=== PATIENT | female | born 1970 | race Caucasian/White ===

== ENCOUNTER 2016-11-02 19:10 | Emergency (ER) | payer BC ==
[2016-11-02 21:08] VITALS: BP 118/73
[2016-11-02] MEDS ORDERED: Hydrocortisone 1% CREAM* 30 GM TUBE TOPICAL ONE (21:25)
--- NOTE | 2016-11-02 21:30 | UC ---
Skin Complaint HPI - HPI Summary HPI Summary: rash under left armpit for months. Comes and goes. No rash elsewhere. Slightly burning and itchy. She uses some sort of herbal deodorant. Has switched types since rash started, didn't help. - History of Current Complaint Chief Complaint: UCSkin Time Seen by Provider: 11/02/16 21:11 Stated Complaint: RASH UNDER ARMS Hx Obtained From: Patient Hx Last Menstrual Period: had an ablation ?: No Onset/Duration: Gradual Onset, Lasting Weeks Timing: Constant Onset Severity: Mild Current Severity: Moderate Location: Other - left axilla Character: Pruritus, Redness, Painful Aggravating: Touch Alleviating: Other - will go away if she stops using deodorant and puts some sort of herbal cream on it. But then it gradually returns. Associated Signs & Symptoms: Positive: Rash Related History: Possible Reaction to: Environmental Exposure - herbal deodorant - Allergy/Home Medications Allergies/Adverse Reactions: Allergies Allergy/AdvReac Type Severity Reaction Status Date / Time Penicillin G Allergy Hives Verified 11/02/16 21:08 Home Medications: Home Medications ValACYclovir (*) [Valtrex 500 mg (*)] 500 mg PO BID PRN 11/02/16 [History Confirmed 11/02/16] Review of Systems Constitutional: Negative Skin: Rash Eyes: Negative ENT: Negative Respiratory: Negative Cardiovascular: Negative Gastrointestinal: Negative Genitourinary: Negative Motor: Negative Neurovascular: Negative Musculoskeletal: Negative Neurological: Negative Psychological: Negative All Other Systems Reviewed And Are Negative: Yes PMH/Surg Hx/FS Hx/Imm Hx Previously Healthy: Yes - Surgical History Surgical History: Yes Surgery Procedure, Year, and Place: c section x2. neck fusion. 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 Lives: With Family Alcohol Use: Occasionally Substance Use Type: None Smoking Status (MU): Never Smoked Tobacco - Immunization History Most Recent Influenza Vaccination: none Physical Exam Triage Information Reviewed: Yes Appearance: Well-Appearing, No Pain Distress, Well-Nourished Vital Signs: Initial Vital Signs Temp 97.7 F 11/02/16 20:58 Pulse 73 11/02/16 20:58 Resp 16 11/02/16 20:58 BP 118/73 11/02/16 20:58 Pulse Ox 98 11/02/16 20:58 Vital Signs Reviewed: Yes Eye Exam: Normal Eyes: Positive: Conjunctiva Clear Neck exam: Normal Neck: Positive: Supple, Nontender Respiratory Exam: Normal Respiratory: Positive: Lungs clear Cardiovascular Exam: Normal Musculoskeletal Exam: Normal Neurological Exam: Normal Psychological Exam: Normal Skin Exam: Other - ovoid reddened area in left axilla. It is just in the axilla , seems to correlate with where one would put deodorant. No blisters or pustules. Slightly scaly. Mildly tender Course/Dx - Course Course Of Treatment: contact dermatitis vs. fungal infection - Differential Diagnoses - Skin Complaint Differential Diagnoses: Cellulitis, Contact Dermatitis, Tinea, Urticaria - Diagnoses Provider Diagnoses: contact dermatitis Discharge - Discharge Plan Condition: Stable Disposition: HOME Prescriptions: Clotrimazole/Betamethasone* [Lotrisone Cream*] 1 applic TOPICAL BID #1 tube Patient Education Materials: Contact Dermatitis (ED) Referrals: Kenyatta Powell NP [Primary Care Provider] -
== END 2016-11-02 21:38 | disposition home or self-care (01) ==
LOC: UCCORT 19:10
DX: L25.9 Unspecified contact dermatitis, unspecified cause (principal); Z88.0 Allergy status to penicillin
CPT/HCPCS: 99212; A9270-GY; G0463

== ENCOUNTER 2017-01-23 19:49 | Emergency (ER) | payer BC ==
[2017-01-23 20:01] VITALS: BP 127/76
--- NOTE | 2017-01-23 20:21 | UC ---
Skin Complaint HPI - HPI Summary HPI Summary: 47 female presents with tick bite that she noticed today around 12pm today . She was outside in the [facility] when she felt something on her back irritating her and realized it was a tick. Patient was unable to remove tick by herself. She admits to redness surrounding bite but denies bullseye rash. Tick has been attached for the past ~6 hours. Denies any other complaints at this time. Denies swelling, pain and pruritis. - History of Current Complaint Chief Complaint: UCSkin Time Seen by Provider: 01/23/17 19:55 Stated Complaint: TICK Hx Obtained From: Patient Hx Last Menstrual Period: ablation ?: No Onset/Duration: Sudden Onset Skin Exposure Onset/Duration: Hours Ago Current Severity: Mild Pain Intensity: 3 Pain Scale Used: 0-10 Numeric Location: Other - left side/flank Character: Redness - Allergy/Home Medications Allergies/Adverse Reactions: Allergies Allergy/AdvReac Type Severity Reaction Status Date / Time Penicillin G Allergy Hives Verified 01/23/17 20:00 Review of Systems Constitutional: Negative Skin: Other - tick bite Respiratory: Negative Cardiovascular: Negative Gastrointestinal: Negative Motor: Negative Neurovascular: Negative Musculoskeletal: Negative Neurological: Negative All Other Systems Reviewed And Are Negative: Yes PMH/Surg Hx/FS Hx/Imm Hx Endocrine History Of: Denies: Diabetes Cardiovascular History Of: Denies: Hypertension Respiratory History Of: Denies: Asthma - Surgical History Surgical History: Yes Surgery Procedure, Year, and Place: c section x2. neck fusion. lamenectomy. uterine ablation - Family History Known Family History: Negative: Cardiac Disease - Social History Alcohol Use: Occasionally Substance Use Type: None Smoking Status (MU): Never Smoked Tobacco - Immunization History Most Recent Influenza Vaccination: none Physical Exam Triage Information Reviewed: Yes Appearance: Well-Appearing - appears anxious, No Pain Distress, Well-Nourished Vital Signs: Initial Vital Signs Temp 96.3 F 01/23/17 19:57 Pulse 71 01/23/17 19:57 Resp 16 01/23/17 19:57 BP 127/76 01/23/17 19:57 Pulse Ox 100 01/23/17 19:57 Vital Signs Reviewed: Yes Eyes: Positive: Conjunctiva Clear ENT: Positive: Normal ENT inspection, Hearing grossly normal Neck: Positive: Supple, Nontender Respiratory: Positive: Chest non-tender, Lungs clear, Normal breath sounds Cardiovascular: Positive: RRR, No Murmur, Pulses Normal Abdomen Description: Positive: Nontender Bowel Sounds: Positive: Present Musculoskeletal: Positive: Strength Intact, ROM Intact, No Edema Neurological: Positive: Alert Skin: Positive: Other - tick bite- tick was removed in office without complication. entire tick without FB left in woun. Tick was still alive and placed in container. surrounding erythema, non tender, non raised and no discharge. no other tick bites and no erythema migrans noted. Course/Dx - Course Course Of Treatment: tick was removed without complication. patient was educated on lyme disease and signs and symptoms to watch out for. patient does not need doxycycline prophylaxis due to length of time tick has been attached < 24 hours. was not engorged. follow up with pcp recommended and watch tick bite for erythema migrans. - Differential Diagnoses - Skin Complaint Differential Diagnoses: Abscess, Cellulitis, Tick Born Illness, Tinea, Other - Diagnoses Provider Diagnoses: tick bite Discharge - Discharge Plan Condition: Stable Disposition: HOME Patient Education Materials: Lyme Disease (ED), Tick Bite (ED) Referrals: Kenyatta Powell NP [Primary Care Provider] - Additional Instructions: Watch tick bite for worsening rash, such as a bullseye rash. If new symptoms develop such as nausea, vomiting, joint pain and rash please seek medical attention promptly. The area may be sore, you can take ibuprofen for pain inflammation. Ice area and apply neosporin if needed. Follow up with pcp.
== END 2017-01-23 20:33 | disposition home or self-care (01) ==
LOC: UCCORT 19:49
DX: S30.861A Insect bite (nonvenomous) of abdominal wall, initial encounter (principal); W57.XXXA Bitten or stung by nonvenomous insect and other nonvenomous arthropods, initial encounter; Y93.89 Activity, other specified; Y92.821 Forest as the place of occurrence of the external cause; Z88.0 Allergy status to penicillin
CPT/HCPCS: 99211; G0463

== ENCOUNTER 2017-05-28 11:45 | Emergency (ER) | payer BC ==
--- NOTE | 2017-05-28 12:36 | UC ---
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 Also intermittent right lower back pain." pain started 8/16 PM at 5/10, worsening daily and now 7/10. appetite decreased. h/o endometrial ablation , denies . no personal or Fhx of kidney stones. lying on her side with a heating bad curled up helps alleviate the pain. no hematuria. mild Rt low back pain. mild short term relief with ibuprofen 800mgs x 1 yesterday. did some light yard work earlier in the week with lifting a bucket of mulch. doesnt feel any bulging. pain in very low RLQ. has had h/o ovarian cysts but this feels different. no fevers. states she had a lyme test recentlty that is pending and what sounds like a BMP that was nml. no shellfish allergy. not on any meds but uses essential oils. denies kidney disease, DM or metformin. she does have increased pain with coughing and sneezing. ate 2.5 hrs ago. Does not feel that she could eat her favorite food right now if presented. recent vertigo and takes meclizine only. , denies STD risk. no vaginal d/c. - History Of Current Complaint Chief Complaint: UCAbdominalPain Stated Complaint: RIGHT LOWER ABDOMINAL PAIN Time Seen by Provider: 05/28/17 12:14 Hx Last Menstrual Period: unknown, ablation done - Allergies/Home Medications Allergies/Adverse Reactions: Allergies Allergy/AdvReac Type Severity Reaction Status Date / Time Penicillin G Allergy Hives Verified 05/28/17 11:54 Home Medications: Home Medications NK [No Home Medications Reported] 05/28/17 [History Confirmed 05/28/17] PMH/Surg Hx/FS Hx/Imm Hx Previously Healthy: Yes - Surgical History Surgical History: Yes Surgery Procedure, Year, and Place: c section x2. neck fusion. lamenectomy. uterine ablation - Family History Known Family History: Positive: Other - No Fhx kidney stone Negative: Cardiac Disease - Social History Alcohol Use: Occasionally Substance Use Type: None Smoking Status (MU): Never Smoked Tobacco - Immunization History Most Recent Influenza Vaccination: none Review of Systems Constitutional: Fatigue Skin: Negative Eyes: Negative ENT: Negative Respiratory: Negative Cardiovascular: Negative Gastrointestinal: Abdominal Pain Genitourinary: Negative Motor: Negative Neurovascular: Negative Musculoskeletal: Negative Neurological: Negative Psychological: Negative All Other Systems Reviewed And Are Negative: Yes Physical Exam Triage Information Reviewed: Yes Appearance: Well-Appearing, Well-Nourished, Other: - she appears to be in mild distress, she is slow and cautious getting on exam table and lying supine. Vital Signs: Initial Vital Signs Temp 98.5 F 05/28/17 11:49 Pulse 79 05/28/17 11:49 Resp 16 05/28/17 11:49 BP 116/70 05/28/17 11:49 Pulse Ox 98 05/28/17 11:49 Vital Signs Reviewed: Yes Eye Exam: Normal ENT Exam: Normal ENT: Positive: Pharynx normal, TMs normal Dental Exam: Normal Neck exam: Normal Neck: Positive: Supple, Nontender, No Lymphadenopathy Respiratory Exam: Normal Respiratory: Positive: Lungs clear, Normal breath sounds, No respiratory distress, No accessory muscle use Cardiovascular Exam: Normal Cardiovascular: Positive: RRR, No Murmur, Pulses Normal, Brisk Capillary Refill Abdomen Description: Positive: Soft, Other: - mild tenderness at RLQ. more comfortable with keeping hips flexed while supine, increased discomfort when legs extended.. Negative: CVA Tenderness (R), CVA Tenderness (L), Distended, Guarding, Hernia @, Hepatomegaly, Peritoneal Signs Bowel Sounds: Positive: Present Musculoskeletal Exam: Normal Neurological Exam: Normal Psychological Exam: Normal Skin Exam: Normal Complaint Female Dx - Course Course Of Treatment: CT A/P w/ oral contrast (IV contrast NA) that shows nml appendix, + ovarian cysts, + gall stones. small fat containing umbilical hernia. reviewed with pt and copy of CT report and CD given to pt (her friend is radiologist at [facility]). UA nml, urine HCG is neg - Differential Dx/Diagnosis Differential Diagnosis/HQI/PQRI: Ovarian Cyst, Renal Colic, Sexually Transmitted Disease, Tubo-ovarian Abscess, Ureteral Stone, Urinary Tract Infection Provider Diagnoses: RLQ abd pain. ovarian cysts, gall stones Discharge - Discharge Plan Condition: Stable Disposition: HOME Patient Education Materials: Ovarian Cyst (ED), Gallstones (ED) Referrals: Kenyatta Powell NP [Primary Care Provider] - Additional Instructions: A copy of your CT report adn CD with the images have been provided for you. There is some limitation of CT interpretation as there was no IV contrast. You can discuss if further testing is needed with your PCP. The pain may be due to ovarian cysts. call your [facility] for further follow up. You can also ask for a surgical consult for the gallstones as we talked about pain on the right upper side after eating something fatty. These are not the cause of the pain that you came in for today, however.
[2017-05-28 13:59] VITALS: BP 122/64
--- NOTE | 2017-05-28 15:13 | RAD ---
CLINICAL HISTORY: Right lower quadrant pain COMPARISON: None TECHNIQUE: Multiple contiguous axial CT scans were obtained of the abdomen and pelvis, without intravenous contrast enhancement. Coronal and sagittal multiplanar reformations are submitted for review. Oral contrast was administered. FINDINGS: The study is limited by the lack of intravenous contrast. This limits evaluation of the solid organs and vasculature. LUNG BASES: The lung bases are clear. LIVER: The liver is normal in shape, size, contour, and attenuation. BILE DUCTS: There is no intrahepatic or extrahepatic biliary dilatation. GALLBLADDER: The gallbladder is incompletely distended. Multiple gallstones are noted. There is no pericholecystic inflammatory change. PANCREAS: The pancreas is normal, without mass or ductal dilatation. SPLEEN: Normal in size and appearance. UPPER GI TRACT: Evaluation of the gastrointestinal tract is limited by incomplete gastric distention. The upper GI tract is unremarkable. SMALL BOWEL AND MESENTERY: The small bowel is normal in contour, course, and caliber. There is no obstruction or dilatation. COLON: The colon is normal in contour, course, caliber. There is no pericolonic inflammatory change. There is a tubular, vermiform, hollow viscus that is blind ending, and originates from the cecum, consistent with a normal appendix. There is no periappendiceal inflammatory change. This is best seen on coronal images 41 through 43. ADRENALS: Normal bilaterally. KIDNEYS: The kidneys are normal in shape, size, contour, and axis. There is no hydronephrosis or nephrolithiasis. BLADDER: The bladder is smooth in contour. PELVIC ORGANS: The uterus is fibroid. There are bilateral ovarian cysts. AORTA: The aorta is normal. IVC: Unremarkable LYMPH NODES: There is no lymphadenopathy by size criteria. ABDOMINAL WALL: There is a small fat-containing umbilical hernia. BONES AND SOFT TISSUES: Degenerative changes are noted of the spine OTHER: None IMPRESSION: CHOLELITHIASIS WITHOUT PERICHOLECYSTIC INFLAMMATORY CHANGE. NORMAL APPENDIX.
== END 2017-05-28 15:40 | disposition home or self-care (01) ==
LOC: UCCORT 11:45
DX: R10.31 Right lower quadrant pain (principal); N83.209 Unspecified ovarian cyst, unspecified side; K80.20 Calculus of gallbladder without cholecystitis without obstruction; Z32.02 Encounter for pregnancy test, result negative; R53.83 Other fatigue; Z88.0 Allergy status to penicillin
CPT/HCPCS: 74176; 81003; 84702; 99212; G0463

== ENCOUNTER 2017-08-28 21:12 | Emergency (ER) | payer BC, OTHER ==
[2017-08-28 21:24] VITALS: BP 122/67
--- NOTE | 2017-08-28 21:35 | UC ---
Respiratory Complaint HPI - HPI Summary HPI Summary: URI symptoms over the past week. Cough worse in the morning. Congestion but now feel like there is something up in the left nostril No fever. Tenderness around the nostril. - History of Current Complaint Chief Complaint: UCGeneralIllness Stated Complaint: CONGESTION NOSE PAIN Time Seen by Provider: 08/28/17 21:26 Hx Obtained From: Patient Hx Last Menstrual Period: unknown, ablation done Onset/Duration: Sudden Onset, Lasting Weeks - 1, Still Present Severity Initially: Moderate Severity Currently: Moderate Character: Cough: Nonproductive Aggravating Factors: Recumbent Position Associated Signs And Symptoms: Positive: URI, Nasal Congestion, Hoarseness, Sinus Discomfort. Negative: Wheezing - Allergies/Home Medications Allergies/Adverse Reactions: Allergies Allergy/AdvReac Type Severity Reaction Status Date / Time Penicillin G Allergy Hives Verified 08/28/17 21:24 PMH/Surg Hx/FS Hx/Imm Hx Previously Healthy: Yes - Surgical History Surgical History: Yes Surgery Procedure, Year, and Place: c section x2. neck fusion. lamenectomy. uterine ablation - Family History Known Family History: Positive: Respiratory Disease, Other - No Fhx kidney stone Negative: Cardiac Disease, Hypertension, Diabetes - Social History Occupation: Employed Full-time Lives: With Family Alcohol Use: Occasionally Substance Use Type: None Smoking Status (MU): Never Smoked Tobacco - Immunization History Most Recent Influenza Vaccination: none Review of Systems Constitutional: Fever ENT: Nasal Discharge - with nasal pain., Sinus Pain/Tenderness - left frontal and sphenoid Respiratory: Cough Is Patient Immunocompromised?: No All Other Systems Reviewed And Are Negative: Yes Physical Exam Triage Information Reviewed: Yes Appearance: No Pain Distress, Well-Nourished, Ill-Appearing - mild Vital Signs: Initial Vital Signs Temp 98.1 F 08/28/17 21:20 Pulse 74 08/28/17 21:20 Resp 14 08/28/17 21:20 BP 122/67 08/28/17 21:20 Pulse Ox 100 08/28/17 21:20 ENT: Positive: Pharynx normal, Nasal congestion - with allergic changes. Tender along the left side of the nose with mild swelling., TMs normal Neck exam: Normal Respiratory Exam: Normal Cardiovascular Exam: Normal Musculoskeletal Exam: Normal Neurological Exam: Normal Psychological Exam: Normal Skin Exam: Normal UC Diagnostic Evaluation - Laboratory O2 Sat by Pulse Oximetry: 100 Respiratory Course/Dx - Differential Dx/Diagnosis Differential Diagnosis/HQI/PQRI: Asthma, Lower Resp Infection, Sinusitis Provider Diagnoses: Acute URI. nasal abscess. Sinusitis. Allergic rhinitis Discharge - Discharge Plan Condition: Stable Disposition: HOME Prescriptions: Cephalexin CAP* [Keflex 500 CAP*] 500 mg PO QID #28 cap Patient Education Materials: Abscess (ED), Rhinosinusitis (ED), Cephalexin (By mouth) Referrals: Kenyatta Powell NP [Primary Care Provider] - Additional Instructions: NEILMED SINUS RINSE: CHECK OUT AT [employer] Saline nasal wash helps with mucous, allergies and congestion. It can be used up to twice a day or only as needed. Use lukewarm tap water. It does not have to be sterilized or distilled water. Do 1/3 on each side and snort out of both nostrils. Repeat the process with 1/6 of the bottle on each side with snorting in between to finish the solution in the bottle
[2017-08-28] MEDS ORDERED: Cephalexin CAP* 500 MG PO ONE (21:40)
== END 2017-08-28 21:51 | disposition home or self-care (01) ==
LOC: UCCORT 21:12
DX: J06.9 Acute upper respiratory infection, unspecified (principal); J32.9 Chronic sinusitis, unspecified; J30.9 Allergic rhinitis, unspecified; Z88.0 Allergy status to penicillin
CPT/HCPCS: 99212; A9270-GY; G0463

== ENCOUNTER 2018-02-20 21:51 | Emergency (ER) | payer BC ==
[2018-02-20 22:02] VITALS: BP 116/70
[2018-02-20] MEDS ORDERED: Cephalexin CAP* 500 MG PO ONE (22:24)
--- NOTE | 2018-02-20 22:28 | UC ---
UC General HPI - HPI Summary HPI Summary: pt c/o pain, pressure and swelling to the inside of her L nare since am. also notes tender bump by nare on outside. had the same once before and was tx with keflex with good result. was told it was an abscess. no hx mrsa, DM and no fever. - History of Current Complaint Hx Obtained From: Patient Hx Last Menstrual Period: unknown, ablation done Onset/Duration: Gradual Onset Timing: Constant Pain Intensity: 7 Alleviating: nothing Associated Signs & Symptoms: Negative: Fever, Headache <Shy Thompson - Last Filed: 02/20/18 22:30> <Vilma Reyes - Last Filed: 02/20/18 22:39> - History of Current Complaint Chief Complaint: UCGeneralIllness Stated Complaint: NOSE COMPLAINT Time Seen by Provider: 02/20/18 22:04 - Allergy/Home Medications Allergies/Adverse Reactions: Allergies Allergy/AdvReac Type Severity Reaction Status Date / Time Penicillins Allergy Hives Verified 02/20/18 22:08 sulfamethoxazole Allergy Vomiting Verified 02/20/18 22:13 Home Medications: Home Medications Magnesium CITRATE* [Citrate of Magnesia*] 300 ml PO DAILY 02/20/18 [History Confirmed 02/20/18] PMH/Surg Hx/FS Hx/Imm Hx - Additional Past Medical History Additional PMH: skin infection L nare - Surgical History Surgical History: Yes Surgery Procedure, Year, and Place: c section x2. neck fusion. lamenectomy. uterine ablation - Family History Known Family History: Positive: Respiratory Disease, Other - No Fhx kidney stone Negative: Cardiac Disease, Hypertension, Diabetes - Social History Occupation: Employed Full-time Alcohol Use: Occasionally Substance Use Type: None Smoking Status (MU): Never Smoked Tobacco - Immunization History Most Recent Influenza Vaccination: none Vaccination Up to Date: Yes <Shy Thompson - Last Filed: 02/20/18 22:30> Review of Systems Constitutional: Negative Skin: Other - pain swelling L nare Eyes: Negative ENT: Negative Respiratory: Negative Cardiovascular: Negative Gastrointestinal: Negative Genitourinary: Negative Motor: Negative Neurovascular: Negative Musculoskeletal: Negative Neurological: Negative Psychological: Negative Is Patient Immunocompromised?: No All Other Systems Reviewed And Are Negative: Yes <Shy Thompson - Last Filed: 02/20/18 22:30> Physical Exam Triage Information Reviewed: Yes Appearance: Well-Appearing Vital Signs: Initial Vital Signs Temp 98.1 F 02/20/18 21:55 Pulse 79 02/20/18 21:55 Resp 16 02/20/18 21:55 BP 116/70 02/20/18 21:55 Pulse Ox 99 02/20/18 21:55 Vital Signs Reviewed: Yes Eyes: Positive: Conjunctiva Clear ENT: Positive: Pharynx normal, TMs normal, Other - Inside L nare on lateral wall there is slight swelling compared to R. The site is very tender but not fluctuant. Adjacent to L nare on outside there is a second area that is a little red and swollen but not fluctuant. no auricular adenopathy.. Negative: Nasal congestion, Nasal drainage Neck: Positive: Supple, Nontender, No Lymphadenopathy Respiratory: Positive: Lungs clear, Normal breath sounds Cardiovascular: Positive: RRR, No Murmur Abdomen Description: Positive: Nontender, No Organomegaly, Soft Bowel Sounds: Positive: Present Musculoskeletal: Positive: ROM Intact Neurological: Positive: Alert Psychological: Positive: Age Appropriate Behavior Skin Exam: Normal <Shy Thompson - Last Filed: 02/20/18 22:30> Vital Signs: Initial Vital Signs Temp 98.1 F 02/20/18 21:55 Pulse 79 02/20/18 21:55 Resp 16 02/20/18 21:55 BP 116/70 02/20/18 21:55 Pulse Ox 99 02/20/18 21:55 <Vilma Reyes - Last Filed: 02/20/18 22:39> Course/Dx - Course Course Of Treatment: exam c/w skin infections. no overt abscess. will tx with Bactroban to nare plus keflex. pt does have pcn allergy but has taken keflex with no issues. she is a pt of Dr Jon thus will have her f/u with him for this recurrent infection L nare. - Differential Dx - Multi-Symptom Provider Diagnoses: Skin infection L nare and l face adjacent to nare. <Shy Thompson - Last Filed: 02/20/18 22:30> Discharge - Sign-Out/Discharge Documenting (check all that apply): Discharge/Admit/Transfer - Billing Disposition and Condition Condition: STABLE Disposition: HOME <Shy Thompson - Last Filed: 02/20/18 22:30> - Billing Disposition and Condition Condition: STABLE Disposition: HOME <Vilma Reyes - Last Filed: 02/20/18 22:39> - Discharge Plan Condition: Stable Disposition: HOME Prescriptions: Cephalexin CAP* [Keflex CAP*] 500 mg PO TID #21 cap Mupirocin 2% OINT* [Bactroban 2 % Oint*] 1 applic TOPICAL BID 5 Days #1 tube Patient Education Materials: Cellulitis (DC) Referrals: Kenyatta Powell NP [Primary Care Provider] - If Needed Geoffrey Jon MD [Medical Doctor] - 3 Days Attestation Statement User Type: Provider - I was available for consult. This patient was seen by the BRODIE. The patient was not presented to, seen by, or examined by me. -Thanhj <Vilma Reyes - Last Filed: 02/20/18 22:39>
== END 2018-02-20 22:35 | disposition home or self-care (01) ==
LOC: UCCORT 21:51
DX: L08.9 Local infection of the skin and subcutaneous tissue, unspecified (principal)
CPT/HCPCS: 99212; A9270-GY; G0463

== ENCOUNTER 2018-03-25 07:21 | Emergency (ER) | payer BC ==
[2018-03-25 07:36] VITALS: BP 107/72
--- NOTE | 2018-03-25 08:09 | ED ---
Throat Pain/Nasal Congestion - HPI Summary HPI Summary: 48 yr old female with the complaint of runny nose, scratchy throat, mild hoarse voice for 6 days, and now drainage from her eyes. She complains of yellow drainage from the eyes, right greater than left. 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 - History of Current Complaint Chief Complaint: UCRespiratory Time Seen by Provider: 03/25/18 07:35 - Allergies/Home Medications Allergies/Adverse Reactions: Allergies Allergy/AdvReac Type Severity Reaction Status Date / Time Penicillins Allergy Hives Verified 03/25/18 07:37 sulfamethoxazole Allergy Vomiting Verified 03/25/18 07:37 Home Medications: Home Medications Ibuprofen TAB* [Motrin TAB* 800 MG] 800 mg PO ONCE PRN 03/25/18 [History Confirmed 03/25/18] PMH/Surg Hx/FS Hx/Imm Hx Endocrine/Hematology History: Denies: Hx Diabetes Cardiovascular History: Denies: Hx Hypertension Respiratory History: Denies: Hx Asthma - Surgical History Surgery Procedure, Year, and Place: c section x2. neck fusion. lamenectomy. uterine ablation Infectious Disease History: No Infectious Disease History: Denies: Traveled Outside the [place] in Last 30 Days - Family History Known Family History: Positive: Respiratory Disease, Other - No Fhx kidney stone Negative: Cardiac Disease, Hypertension, Diabetes - Social History Alcohol Use: Occasionally Substance Use Type: Reports: None Smoking Status (MU): Former Smoker Review of Systems Constitutional: Negative Positive: Drainage Positive: Sore Throat, Nasal Discharge Positive: Cough All Other Systems Reviewed And Are Negative: Yes Physical Exam Triage Information Reviewed: Yes Vital Signs On Initial Exam: Initial Vitals Temp Pulse Resp BP Pulse Ox 97.9 F 81 18 107/72 99 03/25/18 07:28 03/25/18 07:28 03/25/18 07:28 03/25/18 07:28 03/25/18 07:28 Vital Signs Reviewed: Yes Appearance: Positive: Well-Appearing, No Pain Distress Skin: Positive: Warm Eyes: Positive: EOMI, JANINE, Conjunctiva Inflammed, Discharge ENT: Positive: Pharyngeal erythema, Nasal congestion, TMs normal Neck: Positive: Nontender Respiratory/Lung Sounds: Positive: Clear to Auscultation, Breath Sounds Present Cardiovascular: Positive: RRR. Negative: Murmur Abdomen Description: Positive: Nontender Musculoskeletal: Positive: Strength/ROM Intact Neurological: Positive: Sensory/Motor Intact, Alert, Oriented to Person Place, Time, CN Intact II-III Psychiatric: Positive: Normal - Gerber Coma Scale Best Eye Response: 4 - Spontaneous Best Motor Response: 6 - Obeys Commands Best Verbal Response: 5 - Oriented Coma Scale Total: 15 Diagnostics - Vital Signs Vital Signs Temp Pulse Resp BP Pulse Ox 03/25/18 07:28 97.9 F 81 18 107/72 99 - Laboratory Lab Statement: Any lab studies that have been ordered have been reviewed, and results considered in the medical decision making process. EENT Course/Dx - Course Course Of Treatment: 48 yr old female URI, conjunctivitis - Diagnoses Provider Diagnoses: Conjunctivitis, Upper respiratory infection Discharge - Sign-Out/Discharge Documenting (check all that apply): Discharge/Admit/Transfer - Discharge Plan Condition: Good Disposition: HOME Prescriptions: Azithromycin TAB* [Zithromax TAB (Z-VENICE) 250 mg #6 tabs] 2 tab PO .TODAY, THEN 1 DAILY #1 venice Erythromycin OPTH OINT* [Erythromycin 0.5% OPTH OINT*] 1 applic BOTH EYES TID # 1 tube Patient Education Materials: Conjunctivitis (ED), Upper Respiratory Infection ( ED) Referrals: Kenyatta Powell NP [Primary Care Provider] - 2 Days - Billing Disposition and Condition Condition: GOOD Disposition: Home
== END 2018-03-25 08:00 | disposition home or self-care (01) ==
LOC: UCCORT 07:21
DX: H10.9 Unspecified conjunctivitis (principal); J06.9 Acute upper respiratory infection, unspecified; Z88.1 Allergy status to other antibiotic agents; Z88.0 Allergy status to penicillin; Z87.891 Personal history of nicotine dependence
CPT/HCPCS: 99212; G0463